=== PATIENT | female | born 1960 | race Caucasian/White ===

== ENCOUNTER 2019-10-06 04:16 | Emergency (ER) | payer OTHER, SELFPAY ==
[2019-10-06 04:17] VITALS: BP 162/86; PULSE 64; RESP 16; TEMP 36.8; O2SAT 97; BMI 33.0
--- NOTE | 2019-10-06 04:28 | RAD_ITS ---
STUDY: X-RAY - RIGHT ANKLE REASON FOR EXAM: Female, 59 years old. FELL OVER CAT AND TWISTED RT ANKLE -- C/O PAIN TO RT ANKLE TECHNIQUE: 3 view(s) of the ankle. COMPARISON: None. FINDINGS: Normal visualized distal tibia and fibula. Normal medial and lateral malleoli. Normal tibiotalar articulation and ankle mortise. Normal visualized talus. Calcaneal spurring is visualized. The visualized subtalar, talonavicular, calcaneocuboid and tarsal articulations are normal. The soft tissue structures are unremarkable. RAD/Ankle min 3 Views IMPRESSION: Negative x-ray examination of the ankle for acute fracture. Electronically Signed: Gaurang Sanchez, at 5:14 EST Tel , Service support ,
--- NOTE | 2019-10-06 04:29 | ED.VIS.GEN ---
History of Present Illness Chief Complaint: Lower Extremity Injury Onset: Today Narrative: Patient sustained an inversion injury to the right ankle. She states as long as she is at rest does not bother some but it is very painful to walk. She denies any other injuries. Past Medical History - Allergies and Home Meds Allergies/Adverse Reactions: Allergies No Known Allergies Allergy (Verified 10/06/19 04:17) Primary Care Physician: Vipul Goodwin [Primary Care Provider] - Smoking Status: Never smoker Review of Systems General: Denies: Chills, Fever, Sweats Eyes: Denies: Visual changes - bilaterally, Diplopia ENT: Denies: Rhinorrhea, Sore throat Cardiovascular: Denies: Chest pain, Palpitations Respiratory: Denies: Dyspnea, Cough, Dyspnea on exertion Gastrointestinal: Denies: Abdominal pain, Nausea, Vomiting, Diarrhea, Melena, Hematochezia Genitourinary: Denies: Dysuria, Hematuria, Frequency Musculoskeletal: Denies: Back pain, Extremity Pain Skin: Denies: Rash, Wounds Neurological: Denies: Headache, Weakness, Numbness Physical Exam Vital Signs/Narrative: Vital Signs Temp Pulse Resp BP Pulse Ox 10/06/19 04:17 98.3 F 64 16 162/86 H 97 Inital Vital Signs reviewed: Yes General: Well nourished, Well developed, No Acute Distress Head: Normocephalic, Atraumatic Eyes: Perrl, EOMI ENT: Moist mucous membranes, No rhinorrhea Neck: Supple, Nontender Cardiovascular: Regular rate, Regular rhythm, No murmurs Respiratory: No distress, CTA bilaterally, Chest nontender Abdomen: Soft, Nontender, Nondistended, Normal bowel sounds Back: Nontender, Normal Inspection Extremities: Tenderness - Tender palpation at the distal aspect of the right fibula. Joint otherwise appears stable. There is no fifth metatarsal pain there is no posterior malleolus or medial malleolus pain. No fibular head pain. No tibial shaft pain. Skin: Normal color, No rash Neurological: Alert, Oriented x3, Cranial nerves II-XII grossly intact, Normal Strength, Normal Sensation Psychological: Normal affect, Normal Mood Diagnostic/Tx/Re-eval - Medical Decision Making X-rays of the right ankle were negative for fracture. Should be placed in a air splint. We discussed crutches versus cane. She would prefer a cane. Rest ice elevate. Follow-up with primary care if not improved 10 to 14 days ED Disposition - Plan for ED Patient: Disposition: Home or Assisted Living Diagnosis: Right ankle sprain Instructions: Sprain, Ankle, with X-Ray Referrals: Vipul Goodwin [Primary Care Provider] - 10-14 Days if not better
[2019-10-06 06:08] VITALS: RESP 14
== END 2019-10-06 06:09 | disposition home or self-care (01) ==
PROVIDERS: Emergency Provider Emergency Medicine; PCP Student in an Organized Health Care Education/Training Program; Referring Provider Student in an Organized Health Care Education/Training Program
DX: S93.401A Sprain of unspecified ligament of right ankle, initial encounter (principal); X50.1XXA Overexertion from prolonged static or awkward postures, initial encounter; Y93.9 Activity, unspecified; Y92.9 Unspecified place or not applicable; Y99.9 Unspecified external cause status; Z79.82 Long term (current) use of aspirin; Z79.899 Other long term (current) drug therapy
CPT/HCPCS: 73610; 99283

== ENCOUNTER → 2020-11-21 07:47 | Outpatient (CLI) | payer OTHER, SELFPAY ==
[2020-11-21 08:01] VITALS: BP 184/85; PULSE 78; RESP 16; TEMP 36.8; O2SAT 96; BMI 32.5
[2020-11-21] MEDS: Cosyntropin 0.25 MG Vial IM (08:27)
[2020-11-21 09:40] VITALS: BP 142/75; PULSE 72
== END ==
PROVIDERS: PCP Student in an Organized Health Care Education/Training Program; Referring Provider Student in an Organized Health Care Education/Training Program; Visit Provider Student in an Organized Health Care Education/Training Program
DX: E27.49 Other adrenocortical insufficiency (principal)
CPT/HCPCS: 36415; 82533; 96372; J0834